=== PATIENT | female | born 1985 | race Caucasian/White ===

== ENCOUNTER 2019-03-30 21:03 | Emergency (ER) | payer BC, MEDICAID ==
[~2019-03-30] VITALS: Ht 167.6 cm; Wt 73.0 kg
[2019-03-30 21:17] VITALS: BP 137/83
== END 2019-03-31 00:23 | disposition left against medical advice (07) ==
LOC: ER 21:03
DX: T74.31XA Adult psychological abuse, confirmed, initial encounter (principal); Y08.89XA Assault by other specified means, initial encounter; Y07.01 Husband, perpetrator of maltreatment and neglect
CPT/HCPCS: 99283